=== PATIENT | female | born 1985 | race Caucasian/White ===

== ENCOUNTER 2018-02-28 18:30 | Emergency (ER) | payer MEDICAID ==
[~2018-02-28] VITALS: Ht 144.8 cm; Wt 93.0 kg
[2018-02-28 18:58] VITALS: Ht 144.8 cm; Wt 93.0 kg
[2018-02-28] MEDS ORDERED: morphine 4 MG/ML VIAL IV STA (20:50)
[2018-02-28] MEDS ORDERED: ONDANSETRON 4 MG INJ IV STA (20:50)
[2018-02-28] MEDS ORDERED: SOD CHLORIDE 0.9% 1,000 ML IV STA (20:50)
--- NOTE | 2018-02-28 21:04 | ERD ---
ER Documentation Chief Complaint Chief Complaint RLQ PAIN X 4 DAYS HPI This patient is a 32-year-old female with no significant medical history presenting to the emergency department complaining of right upper quadrant pain which began 2 days ago. Pain is intermittent, 8/10 in severity, alleviated by nothing. She states she has had similar symptoms in the past. She did eat pizza this morning which she believes made her symptoms worse. She denies any nausea, vomiting, diarrhea, fevers, chills, or other symptoms at this time. ROS All systems reviewed and are negative except as per history of present illness. Medications Home Meds Active Scripts Naproxen* (Naprosyn*) 500 Mg Tablet, 500 MG PO BID PRN for PAIN AND/OR INFLAMMATION, #30 TAB Prov:SHAYNE ROBLERO PA-C 02/28/18 Allergies Allergies: Coded Allergies: No Known Allergy (Unverified , 03/31/13) PMhx/Soc History of Surgery: No Anesthesia Reaction: No Hx Respiratory Disorders: No Hx Cardiac Disorders: Yes (pRE-ENCLAMPSIA THIS 3RD BABY DELIVER) Hx Psychiatric Problems: No Hx Miscellaneous Medical Probl: Yes (S/P RECENTLY ) Hx Alcohol Use: No Hx Substance Use: No Hx Tobacco Use: No Smoking Status: Never smoker FmHx Family History: No diabetes Physical Exam Vitals Vital Signs Date Temp Pulse Resp B/P (MAP) Pulse Ox O2 O2 Flow FiO2 Time Delivery Rate 02/28/18 98.6 74 18 141/67 100 18:58 (91) Physical Exam Const: No acute distress Head: Atraumatic Eyes: Normal Conjunctiva ENT: Normal External Ears, Nose and Mouth. Neck: Full range of motion. No meningismus. Resp: Clear to auscultation bilaterally Cardio: Regular rate and rhythm, no murmurs Abd: Soft, tenderness to palpation of the right upper quadrant, no true Becerra sign, no McBurney's point tenderness, no rebound tenderness or guarding, non distended. Normal bowel sounds Skin: No petechiae or rashes Ext: No cyanosis, or edema Neur: Awake and alert Psych: Normal Mood and Affect Result Diagram: 02/28/18205702/28/182057 Results 24 hrs Laboratory Tests Test 02/28/18 20:08 02/28/18 20:58 12/18/18 21:06 Urine Color YELLOW Urine Clarity SLIGHTLY CLOUDY Urine pH 7.0 Urine Specific [place] 1.024 Urine Ketones NEGATIVE mg/dL Urine Nitrite NEGATIVE mg/dL Urine Bilirubin NEGATIVE mg/dL Urine Urobilinogen NEGATIVE mg/dL Urine Leukocyte Esterase NEGATIVE Keke/ul Urine Microscopic RBC 2 /HPF Urine Microscopic WBC 2 /HPF Urine Squamous Epithelial Cells MODERATE /HPF Urine Bacteria FEW /HPF Urine Mucus FEW /HPF Urine Hemoglobin NEGATIVE mg/dL Urine Glucose NEGATIVE mg/dL Urine Total Protein NEGATIVE mg/dl White Blood Count 11.9 10^3/ul Red Blood Count 4.95 10^6/ul Hemoglobin 14.2 g/dl Hematocrit 43.2 % Mean Corpuscular Volume 87.3 fl Mean Corpuscular Hemoglobin 28.7 pg Mean Corpuscular 32.9 g/dl Hemoglobin Concent Red Cell Distribution Width 12.3 % Platelet Count 269 10^3/UL Mean Platelet Volume 10.5 fl Immature Granulocytes % 0.300 % Neutrophils % 68.1 % Lymphocytes % 25.7 % Monocytes % 4.6 % Eosinophils % 1.0 % Basophils % 0.3 % Nucleated Red Blood Cells % 0.0 /100WBC Immature Granulocytes # 0.040 10^3/ul Neutrophils # 8.1 10^3/ul Lymphocytes # 3.1 10^3/ul Monocytes # 0.5 10^3/ul Eosinophils # 0.1 10^3/ul Basophils # 0.0 10^3/ul Nucleated Red Blood Cells # 0.0 10^3/ul Activated Partial Thromboplast 27.2 Sec Time Sodium Level 140 mmol/L Potassium Level 3.8 mmol/L Chloride Level 98 mmol/L Carbon Dioxide Level 31 mmol/L Anion Gap 11 Blood Urea Nitrogen 14 mg/dl Creatinine 0.64 mg/dl Est Glomerular Filtrat > 60 mL/min Rate mL/min Glucose Level 110 mg/dl Lactic Acid Level 0.8 mmol/L Calcium Level 9.8 mg/dl Total Bilirubin 0.4 mg/dl Direct Bilirubin 0.00 mg/dl Indirect Bilirubin 0.4 mg/dl Aspartate Amino 41 IU/L Transf (AST/SGOT) Alanine 49 IU/L Aminotransferase (ALT/SGPT) Alkaline Phosphatase 98 IU/L Total Protein 8.1 g/dl Albumin 4.8 g/dl Globulin 3.30 g/dl Albumin/Globulin Ratio 1.45 Lipase 243 U/L POC Beta HCG, Qualitative NEGATIVE Current Medications Medications Dose Sig/No Start Time Status Last (Trade) Ordered Route PRN Stop Time Admin Dose Reason Admin Sodium 1,000 ml @ Q1H STAT 02/28/18 DC 02/28/18 Chloride 1,000 mls/hr IV 20:50 21:01 02/28/18 21:49 Morphine 4 mg ONCE STAT 02/28/18 DC 02/28/18 Sulfate IV 20:50 21:13 (morphine) 02/28/18 20:52 Ondansetron 4 mg ONCE STAT 02/28/18 DC 02/28/18 HCl (Zofran IV 20:50 21:13 Inj) 02/28/18 20:52 [place] [id number] Radiology Main Line: [phone] DIAGNOSTIC IMAGING REPORT Patient: QUINCY PORTER : 1985 Age: 32 Sex: F MR #: [id number] DOS: 02/28/182049 Ordering MD: SHAYNE ROBLERO PA-C Location: [facility] Room/Bed: PROCEDURE: US Abdomen. CLINICAL INDICATION: Abdominal Pain TECHNIQUE: Multiple real-time images were acquired of the patient's abdomen and retroperitoneum utilizing a high resolution transducer. COMPARISON: Abdominal ultrasound February 17, 2013 FINDINGS: Liver is enlarged measuring 20 cm in length. There is fatty infiltration. No mass or ductal dilatation is present. The common bile duct measures 4 mm in diameter. Portal and hepatic vein are patent on color flow Doppler imaging. No gallstones are seen. Gallbladder wall is not thickened and no abnormal p ericholecystic fluid collection is seen. No sonographic Becerra's sign was elicited. There is no ascites. Limited visualization of pancreas is normal. Right kidney measures 10.8 cm in length. No hydronephrosis, calculus or masses present. IMPRESSION: No evidence of cholelithiasis, cholecystitis or biliary obstruction. Enlarged fatty liver. .Darrell Rosales MD, Date Time Electronically viewed and signed by .Darrell Rosales MD, on 02/28/2018 22:01 .A/ CC: SHAYNE ROBLERO PA-C [id number] Procedures/MDM ER COURSE: 32-year-old female presenting to the emergency department complaining of right upper quadrant pain. Patient was administered IV morphine, IV Zofran, IV fluids in the department with good response. Patient remained hemodynamically stable in the department with no new complaints. LABS: CBC: no e/o of systemic infection or severe anemia CMP: no e/o severe acidosis, alkalosis, renal failure, diabetic ketoac idosis, liver disease Lipase: no e/o pancreatitis Urine: no e/o acute infection or hematuria IMAGING: Ultrasound of the gallbladder showed no acute abnormalities. Full report from the radiologist may be viewed above MEDICAL DECISION MAKING: Patient symptoms are most consistent with GERD versus musculoskeletal pain. Other differential diagnoses included but were not limited to cholecystitis, appendicitis, acute surgical abdomen, diverticulitis, toxic megacolon, urinary tract infection, GERD, esophageal varices, and others. No obvious evidence of emergent or life threatening pathology. The patient agreed with the diagnosis, plan, need for follow-up, return precautions. Pt/family advised to return immediately with any new or worsening symptoms. Follow-up with primary care physician within the next 1-2 days. Patient's blood pressure was elevated (>120/80) but appears stable without evidence of hypertension emergency or urgency. The patient is to follow-up and pursue outpatient monitoring and therapy with their primary care physician within 1 week and return immediately if they have any new, worsening, or concerning symptoms. Disclaimer: Inadvertent spelling and grammatical errors are likely due to EHR/dictation software use and do not reflect on the overall quality of patient care. Also, please note that the electronic time recorded on this note does not necessarily reflect the actual time of the patient encounter. Departure Diagnosis: Primary Impression: Abdominal pain Abdominal location: right upper quadrant Qualified Codes: R10.11 - Right upper quadrant pain Condition: Fair Patient Instructions: Abdominal Pain Additional Instructions: Muchas kenna por [facility] para smart servicio. Esperamos que en smart visita a la noe de emergencia smart problema medico haya sido solucionado y que se sienta mucho mejor. Para estar seguros que smart mejoria sigue en proceso, le pedimos el favor de hacer ralf cb de seguimiento medico con smart doctor primario en los proximos 2-4 hamilton. Lleve con usted estos documentos y las medicinas recetadas. Si art sintomas empeoran, NO SE ESPERE, por favor regrese a noe de emergencia INMEDIATAMENTE. En brett que usted no tenga un mdico de atencin primaria: Llame al mdico o clnica comunitaria de referencia que aparece abajo raymundo las horas de consultorio para hacer ralf cb para que le vean. CLINICAS: [facility] [phone] [facility] [phone] [id number] [facility] [phone] [facility] [phone] [address] [place] [id number] [phone] [facility]. [phone] SHAYNE LYN PA-C Feb 28, 2018 21:04
[2018-02-28] MEDS ORDERED: NAPR-985 PO (22:06)
== END 2018-02-28 22:36 | disposition home or self-care (01) ==
LOC: FTE 18:30
DX: R10.11 Right upper quadrant pain (principal)
CPT/HCPCS: 36415; 76705; 80053; 81001; 81025; 83605; 83690; 85025; 85730; 96374; 96375; J2270; J2405; J7030; Z7502; 81003